=== PATIENT | female | born 1935 | race Caucasian/White ===

== ENCOUNTER → 2021-03-23 14:10 | Outpatient (CLI) | payer MEDICARE, SELFPAY ==
[2021-03-23 14:49] LABS: COVID19 -Nasal RAPID Negative (Negative)
== END ==
PROVIDERS: Visit Provider Physician Assistant
DX: Z20.822 Contact with and (suspected) exposure to COVID-19 (principal)
CPT/HCPCS: 87635

== ENCOUNTER → 2021-10-20 13:30 | Outpatient (CLI) | payer MEDICARE, SELFPAY ==
--- NOTE | 2021-10-20 13:33 | DI.MRI.S_ITS ---
PROCEDURE: MR LUMBAR SPINE WO CON INDICATIONS: Spinal stenosis, lumbar region TECHNIQUE: Noncontrast sagittal T1 spin echo and T2 fast echo, sagittal STIR, and T2 fast spin echo through the lumbar spine. In cases with scoliosis, additional coronal T2 fast spin echo may be performed. COMPARISON: [facility] Outside Film, CR, XR LUMBAR SPINE 2 OR 3 VIEWS, 10/01/2021, 15:50. FINDINGS: Image quality: Excellent. Alignment and Curvature: Trace degenerative anterolisthesis of L3 on L4. Trace degenerative anterolisthesis of L4 on L5. Mild retrolisthesis of L5 on S1 measuring 6 mm. Bone Marrow: Marrow is of normal overall signal. No acute vertebral body compression fractures. Spinal Cord: Conus medullaris terminates at the L1-L2 level. Visualized cord demonstrates normal signal and size. Paraspinous Soft Tissues: No paravertebral masses. T12-L1: No canal stenosis or foraminal stenosis. L1-L2: Disc bulge. Facet hypertrophy. No canal stenosis. Mild bilateral foraminal stenosis. L2-L3: Disc bulge. Facet and ligament hypertrophy. Moderate to severe canal stenosis. Moderate bilateral foraminal stenosis with mild flattening deformity on the exiting bilateral L2 nerve roots. L3-L4: Disc bulge. Facet and ligament hypertrophy. Moderate to severe canal stenosis. Mild right foraminal narrowing. Moderate left foraminal narrowing with flattening deformity on the exiting left L3 nerve root. L4-L5: High-grade canal stenosis secondary to disc bulge, mild anterolisthesis of L4 on L5, and exuberant facet and ligament hypertrophy. Moderate bilateral foraminal narrowing with flattening deformity on the exiting bilateral L4 nerve roots. L5-S1: Retrolisthesis of L5 on S1. Disc degeneration and diffuse disc bulge. Facet hypertrophy. Moderate canal stenosis. Moderate to severe bilateral foraminal narrowing with a degree of bilateral L5 nerve root impingement. IMPRESSION: 1. Diffuse degenerative change with multilevel facet arthropathy. 2. Canal stenosis is moderate to severe at L2-L3, moderate to severe at L3-L4, high-grade at L4-L5, and moderate at L5-S1. 3. Multilevel foraminal narrowing as described above. Dictated by: Aydin Zhang M.D. on 10/20/2021 at 15:22 Approved by: Aydin Zhang M.D. on 10/20/2021 at 15:28
== END ==
PROVIDERS: PCP Internal Medicine; Referring Provider Orthopaedic Surgery Orthopaedic Surgery of the Spine; Visit Provider Orthopaedic Surgery Orthopaedic Surgery of the Spine
DX: M48.061 Spinal stenosis, lumbar region without neurogenic claudication (principal); M48.07 Spinal stenosis, lumbosacral region; M47.816 Spondylosis without myelopathy or radiculopathy, lumbar region; M47.817 Spondylosis without myelopathy or radiculopathy, lumbosacral region
CPT/HCPCS: 72148

== ENCOUNTER → 2021-11-13 11:00 | Outpatient (CLI) | payer MEDICARE, SELFPAY ==
--- NOTE | 2021-11-13 11:03 | DI.CT.S_ITS ---
PROCEDURE: CT LUMBAR SPINE WO CON INDICATIONS: Spinal stenosis, lumbar region TECHNIQUE: Noncontrast 3 mm thick sections acquired from the T12 level to the sacrum. Sagittal and coronal reformats were constructed. For radiation dose reduction, the following was used: automated exposure control. COMPARISON: 10/20/2021 MRI lumbar spine FINDINGS: Anterolisthesis of L4 on L5 measuring 4 mm. Retrolisthesis of L5 on S1 measuring 3 mm. Otherwise normal alignment. Vertebral body heights maintained. No suspicious lytic or blastic osseous lesion. Disc height loss with degenerative endplate change and vacuum disc phenomenon at every level of the lumbar spine. Unc facet hypertrophy to varying degrees is present at each level. There is squaring and close approximation of the spinous processes from L2-L3 through L5-S1 with appearance suggestive of Bastrupp's physiology. Regional soft tissues normal. T12-L1: No spinal canal or neural foraminal stenosis. L1-L2: Diffuse disc bulge with a superimposed broad-based posterior disc protrusion flattens and indents the ventral thecal sac. There is partial calcification of the annulus fibrosis in the paracentral and subarticular zones. Foraminal components of the disc bulge combine with facet hypertrophy to produce mild neural foraminal narrowing L2-L3: Diffuse disc bulge and a superimposed broad-based posterior disc protrusion combine with posterior osteophytic ridging of the endplates and facet hypertrophy and buckling of the ligamentum flavum to produce moderate spinal canal stenosis. These factors combine to produce moderate bilateral neural foraminal narrowing also. L3-L4: Diffuse disc bulge and a superimposed broad-based posterior disc protrusion combines with buckling of the ligamentum flavum and bulky facet hypertrophy to produce severe spinal canal stenosis and subarticular zone narrowing. Prominent osteophytes projecting medially from the medial margin of the right L3-L4 facet. Moderate bilateral neural foraminal stenosis due to foraminal components of the disc bulge and facet hypertrophy. L4-L5: Severe spinal canal stenosis and bilateral neural foraminal stenosis as seen on comparison MRI. Bulky facet hypertrophy with calcified buckling of the ligamentum flavum and prominent osteophytes contribute significantly to the spinal canal and neural foraminal stenosis. L5-S1: Severe subarticular zone stenosis bilaterally. Prominent calcified posterior disc material which blends with posterior osteophytic ridging of the inferior L5 endplate. Severe bilateral neural foraminal stenosis with flattening of the exiting L5 nerve roots. IMPRESSION: Severe degenerative changes as detailed above. Above. Above. Dictated by: Jani Oneill M.D. on 11/13/2021 at 15:34 Approved by: Jani Oneill M.D. on 11/13/2021 at 15:40
== END ==
PROVIDERS: PCP Internal Medicine; Referring Provider Orthopaedic Surgery Orthopaedic Surgery of the Spine; Visit Provider Orthopaedic Surgery Orthopaedic Surgery of the Spine
DX: M48.061 Spinal stenosis, lumbar region without neurogenic claudication (principal); M48.07 Spinal stenosis, lumbosacral region; M47.816 Spondylosis without myelopathy or radiculopathy, lumbar region; Z01.812 Encounter for preprocedural laboratory examination; Z01.818 Encounter for other preprocedural examination
CPT/HCPCS: 36415; 72131; 80048; 85025; 93005

== ENCOUNTER → 2021-11-13 11:13 | Outpatient (CLI) | payer MEDICARE, SELFPAY ==
[2021-11-13 13:58] LABS: Add Manual Diff / Slide Review NO; Basophils Absolute Auto 0 /uL (0-100); Basophils Percent Auto 0.8 % (0-2); Eosinophils Absolute Auto 100 /uL (0-450); Eosinophils Percent Auto 2.8 % (2-4); Hematocrit 36.5 % (36-46); Hemoglobin 12.7 g/dL (12.0-16.0); Lymphocytes Absolute Auto 2300 /uL (1100-4500); Lymphocytes Percent Auto 43.3 % (25-40); Mean Corpuscular HGB Conc 34.8 % (30-36); Mean Corpuscular Hemoglobin 29.9 PG (26-34); Monocytes Absolute Auto 300 /uL (0-900); Monocytes Percent Auto 6.3 % (3-14); Neutrophils Absolute Auto 2400 /uL (1500-7000); Neutrophils Percent Auto 46.8 % (50-75); Platelet Count 182 X10^3/uL (150-400); Red Blood Cell Count 4.24 X10^6/uL (4.0-5.2); Red Cell Distribution Width 13.6 % (11.6-14.8); White Blood Cell Count 5.2 X10^3/uL (4.5-11.0)
[2021-11-13 14:34] LABS: BUN Creatinine Ratio 28.8 (6-22); Blood Urea Nitrogen 23 mg/dL (7-17); Calcium 9.3 mg/dL (8.4-10.2); Carbon Dioxide 33 mmol/L (22-32); Chloride 104 mmol/L (98-107); Estimated Glomerular Filt Rate > 60 mL/min (>60); Glucose 78 mg/dL (80-110); HEMOLYSIS < 15 (0-50); Potassium 4.3 mmol/L (3.4-5.1); Sodium 141 mmol/L (137-145)
== END ==
PROVIDERS: PCP Internal Medicine; Referring Provider Orthopaedic Surgery Orthopaedic Surgery of the Spine; Visit Provider Orthopaedic Surgery Orthopaedic Surgery of the Spine
DX: Z01.818 Encounter for other preprocedural examination (principal)
CPT/HCPCS: 36415; 80048; 85025; 93005

== ENCOUNTER → 2021-12-02 10:45 | Outpatient (CLI) | payer MEDICARE, SELFPAY ==
[2021-12-02 11:58] LABS: COVID19 -Nasal RAPID Negative (Negative)
== END ==
PROVIDERS: PCP Internal Medicine; Referring Provider Orthopaedic Surgery Orthopaedic Surgery of the Spine; Visit Provider Orthopaedic Surgery Orthopaedic Surgery of the Spine
DX: Z20.822 Contact with and (suspected) exposure to COVID-19 (principal)
CPT/HCPCS: 87635; C9803

== ENCOUNTER 2021-12-04 09:20 | Inpatient (IN) | payer MEDICARE, SELFPAY ==
[2021-11-28 09:44] VITALS: BMI 27.8
[2021-12-04] VITALS (13 sets, daily range): BP systolic 106–183; BP diastolic 57–84; PULSE 75–96; RESP 8–22; TEMP 35.6–36.9; O2SAT 97–100; BMI 27.8
--- NOTE | 2021-12-04 | DI.RAD.S_ITS ---
PROCEDURE: XR LUMBAR SPINE 2-3V INDICATIONS: L4-5 L5-S1 TECHNIQUE: 2 spot fluoroscopic views of the lumbar spine were acquired. COMPARISON: None. FINDINGS: Bones: 2 spot fluoroscopic films of the lumbar spine were performed for a posterior spinal fusion L4 through S1. For detailed report please see the surgeon's note. IMPRESSION: Fluoroscopic images obtained for the posterior spinal fusion L4 through S1. Dictated by: Mason Arnold M.D. on 12/04/2021 at 16:07 Approved by: Mason Arnold M.D. on 12/04/2021 at 16:09
[2021-12-04] MEDS: ACETAMINOPHEN 325 MG TABLET 975 MG PO (10:20)
[2021-12-04] MEDS: LACTATED RINGERS 1,000 ML 42 ML IV ×3 (10:21→15:45)
--- NOTE | 2021-12-04 10:35 | PM.PREOP ---
Pre-operative Note COVID-19 COVID-19 status: Negative Result date/Date tested (Pos, Neg/Pending): 12/03/21 Criteria for continued procedure: Expected advancement of disease process, Possibility delay results in more complex future surgery or treatment, Increased loss of function, Continuing or worsening of significant or severe pain, Deterioration of the patient's condition or overall health and Delay expected to result in less-positive ultimate med/surg outcome Interval Note History & Physical reviewed/Exam performed by Physician: Yes Changes to H&P: No
[2021-12-04] MEDS: CEFAZOLIN 2 GM/100 ML PREMIX 100 ML IV ×2 (11:21→19:10)
[2021-12-04] MEDS: BUPIVACAINE LIPOSOME 266 MG/20 ML VIAL INJ (12:04)
[2021-12-04] MEDS: BUPIVACAINE 0.25% (PF) 30 ML, EPINEPHrine 0.3 MG INJ (12:05)
--- NOTE | 2021-12-04 12:20 | SUR.OPER ---
Prone on spine table, head in foam head support, padded chest and pelvic supports, gel pad at knees, lower legs supported by pillows; nipples, genitalia and toes free of pressure, arms secured on foam padded arm boards at <90 degrees abduction. Tape over blanket at thigh secured to table.
[2021-12-04] MEDS: SODIUM CHLORIDE 0.9% 30 ML, VASOPRESSIN 20 UNIT INJ (15:23)
--- NOTE | 2021-12-04 15:40 | P.OP_ITS ---
Operative Date/Time/Diagnoses Date of procedure: 12/04/21 Time of procedure: 12:30 Pre-op diagnosis: 1. L4-5, L5-S1 spondylolisthesis 2. L4-5, L5-S1 spinal stenosis with neurogenic claudication Post-op diagnosis: same Procedure & Clinicians Procedure: 1. L4-5, L5-S1 Postero-lateral and posterior interbody fusion 2. L4-5, L5-S1 interbody cage placement. 3. L4-5, L5-S1 decompressive laminectomy with bilateral facetecomies 4. L4-5, L5-S1 Posterior segmental instrumentation 5. [place] of bone marrow from iliac crest 6. Utilization of microsurgical technique and operating microscope 7. Utilization of robotic assisted navigation Same procedure as scheduled: Yes Indications: Patient has been having chronic back pain and worsening lumbar radiculopathy. Patient failed multiple conservative management with worsening pain weakness and numbness in her lower extremity. Patient has been having difficulty performing activity of daily living. After discussing risks benefits of treatment options, patient elected proceed with surgery. Surgeon: Fallon Gaffney Station Engineer: Isauro Casanova Click Yes if Unassisted: No Anesthesia Type: General Operative Notes Closure Type: primary Specimen(s): none sent Prosthetic devices, grafts, tissues, transplants, or devices: Globus CREO MIS screws, RIse cages Applied: catheter Estimated Blood Loss (mL): 100 Blood products transfused: none Procedure in detail: Patient was seen in the preoperative area. Risks and benefits of the surgery was discussed with the patient. Informed consent was obtained from the patient and placed in the chart. Surgical site was marked. Patient was taken to the operative room. General anesthesia was administered. Prophylactic antibiotic was given to the patient less than 30 min before the incision was made. Patient was placed into a prone position on the [employer] table. Patient's back was then prepped and draped in the sterile fashion. Time-out was performed at this time. After patient was prepped and draped, patient's PSIS was palpated and marked bilaterally. Small 1 cm incision was made over the PSIS for placement of the reference probes. Two trocar was placed into the PSIS 1 on each side. The reference probe was attached to the trocar of the reference apparatus. At this time the C-arm imaging was used to confirm AP and lateral of L4-L5, L5- S1 vertebrae and merged the C-arm imaging using the [employer] robotic navigation system with the CT of the lumbar spine. After successful merging was completed and confirmed, skin marker was used to grazyna out the skin incision using the Luxr robotic arm. Bilateral incision was made at this time. Pre templated trajectory was used and guided using the Luxr robotic navigation system for bilateral L4, L5, S1 pedicle screw placement. This was done by using the robotic arm to guide the high-speed bur to make a cortical entry point. Next a drill was placed also using the robotic arm and guided using the navigation system drilling partially through bilateral L4, L5 and S1 pedicles. Next L4, L5, S1 pedicle screws it was pre templated and measured was placed onto the power regional [employer] company driver and inserted into the pedicles bilaterally. After all 6 screws were placed C-arm imaging was taken of both AP and lateral to confirm the placement. Excellent placement of the screws were confirmed and a matched precisely with the pre planned screw placement using the navigation sys tem. MARs retractor was inserted using [employer] guidence. Globus MARS retractors was placed inside the incision and docked onto the L4 and L5 lamina. Using microsurgical technique and operating microscope, a L4, L5 laminectomy and L4-5, L5-S1 facetectomy was performed using a Kerrison rongeur. Patient was found have severe lateral recess and neural foramen stenosis which was fully d ecompressed after the laminectomy facetectomy. More than 75% of the facets were removed during the process of decompression rendering L4-5, L5-S1 level grossly unstable and required a fusion procedure at the same time. The disc space at L4-5, L5-S1 was identified, and a total diskectomy was performed at L4-5, L5-S1 level. The endplates were decorticated using a rasp and shaver. The total diskectomy and decortication was performed at L4-5, L5-S1 level in order to to accomplish a L4-5, L5-S1 fusion. The local bone from the laminectomy and facetectomy was saved for local bone grafting. After the total diskectomy and decortication was completed, Trifecta bone graft material was combined with local bone that was harvested earlier. At this time, a separate skin is incision was made over the iliac crest. A Jamshidi needle was inserted into the iliac crest through a separate skin incision. 5 cc of bone marrow aspiration was obtained through the separate skin incision using a Jamshidi needle from the iliac crest. The bone marrow aspiration was combined with local bone and the Trifecta bone grafting material. The bone grafting material was placed into the L4-5, L5-S1 interbody space along with a expandable cage. The cage was expanded to its maximum height using the torque limiting screwdriver. The disc preparation as well as the cage insertion were also performed under navigation guidance. After the cage was placed, AP and lateral C-arm imaging was taken to confirm placement of the cage and excellent position was confirmed. Globus MARS retractor was inserted and docked onto the L4-5, L5-S1 posterolateral gutter on the right side. Using the power drill, posterior- lateral decortication was performed at L4-5, L5-S1 level until bleeding cortical bone was identified. The remaining bone grafting material was placed into the L4-5, L5-S1 posterior lateral gutter he order to accomplish posterolateral fusion at the L4-5, L5-S1 level. At this time the tulips were attached to the L4, L5, S1 pedicle screw shanks. After measuring the length of the rods, they were inserted into the tulips of the pedicle screws and locked in place using locking caps and torque limiting screwdriver bilaterally. Total 6 caps and 2 titanium rods was used in order to complete the posterior instrumentation construct. After all the hardware was placed, and confirmed with AP and lateral C-arm imaging, the wound was then irrigated with sterile normal saline and packed with Ray-Ximena gauze for 3 min to accomplish hemostasis. After the gauze was removed the deep fascia was closed with #1 Vicryl suture. The subcutaneous layer was closed with 2-0 Vicryl. The skin was closed with skin delia. Patient tolerated the procedure well. There were no complications. Neuro monitoring system was used to monitor patient's neurologic status throughout entire procedure. There was no disturbance of the neural monitoring signals throughout the case. Complications: none Post-operative Condition: stable Disposition: PACU Plan for aftercare: Admit to inpatient hospital
[2021-12-04] MEDS: fentaNYL 100 MCG/2 ML INJ IV (16:12)
[2021-12-04] MEDS: OXYCODONE IR 5 MG TABLET PO (16:15)
[2021-12-04] MEDS: SODIUM CHLORIDE 0.9% 1,000 ML 100 ML IV (17:10)
[2021-12-04] MEDS: HYDROMORPHONE 0.5 MG INJ IV ×2 (17:23→19:10)
[2021-12-04] MEDS: hydrOXYzine pamoate 25 MG CAPSULE PO (17:27)
[2021-12-04] MEDS: HYDROCODONE/ACET 5/325 TABLET 1 TAB PO (19:11)
[2021-12-04] MEDS: ONDANSETRON 4 MG/2 ML INJ IV (19:41)
[2021-12-04] MEDS: GABAPENTIN 300 MG CAPSULE PO (20:20)
[2021-12-04] MEDS: DOCUSATE 100 MG CAPSULE PO (22:03)
[2021-12-04] MEDS: SENNOSIDES 8.6 MG TABLET 17.2 MG PO (22:04)
[2021-12-04] MEDS: ATORVASTATIN 20 MG TABLET 10 MG PO (22:05)
[2021-12-05] MEDS: HYDROCODONE/ACET 5/325 TABLET 1 TAB PO ×4 (00:30→15:57)
[2021-12-05] MEDS: CEFAZOLIN 2 GM/100 ML PREMIX 100 ML IV (02:27)
[2021-12-05 04:00] VITALS: BP 133/56; PULSE 83; RESP 17; TEMP 36.2; O2SAT 96
[2021-12-05] MEDS: HYDROMORPHONE 0.5 MG INJ IV ×3 (04:39→14:40)
--- NOTE | 2021-12-05 04:47 | PC.NURSE ---
Pt. complained was not able to sleep. States every time that machine pumped it wakes me up. Turned off SCD's for now x1 hour to give her some rest. She might be able to sleep, after SCD's was off. C/O back pain rated pain level @ 8/10, medicated with 0.5 mg. of Dilaudid IVP. Will cont. POC & monitor.
[2021-12-05] MEDS: SODIUM CHLORIDE 0.9% FLUSH 10 ML IV ×2 (06:05→08:15)
[2021-12-05 08:03] LABS: Hematocrit 32.6 % (36-46); Hemoglobin 11.4 g/dL (12.0-16.0)
[2021-12-05] MEDS: FUROSEMIDE 20 MG TABLET PO (08:10)
[2021-12-05] MEDS: hydrOXYzine pamoate 25 MG CAPSULE PO (08:10)
[2021-12-05] MEDS: DOCUSATE 100 MG CAPSULE PO (08:10)
[2021-12-05] MEDS: ACETAMINOPHEN 325 MG TABLET 650 MG PO ×2 (08:10→16:30)
[2021-12-05 08:11] VITALS: BP 127/53; PULSE 82
--- NOTE | 2021-12-05 08:17 | PM.PNPO.1 ---
Subjective Subjective Date Patient Seen: 12/05/21 Time Patient Seen: 07:45 Interval history: Patient is complaining of moderate low back pain this morning. She has not been up with physical therapy or occupational therapy yet. She does know her right foot and leg numbness is improving, which he had prior to surgery. Her postop nausea and vomiting has resolved. Exam Vital Signs (past 8 hours): - 12/05/21 04:00 12/05/21 08:11 Temperature 97.2 F L Pulse Rate 83 82 Respiratory Rate 17 Blood Pressure 133/56 L 127/53 L Pulse Oximetry 96 Oxygen Flow Rate 0 Oxygen Delivery Method Nasal Cannula Oxygen Flow Rate 0 Narrative Exam Narrative: 86-year-old female, resting comfortably in bed, no acute distress. Dressing demonstrates some bloody discharge but no surrounding erythema or induration. Bilateral lower extremity: Motor functions are grossly intact, sensation is grossly intact to light touch, calves are soft and nontender to palpation. Objective Labs Result Diagrams: 12/05/21 07:22 Labs: Laboratory Results - last 24 hr 12/05/21 07:22 Hgb 11.4 L Hct 32.6 L PFSH Medical History Edema HLD (hyperlipidemia) Sciatica Short-term memory loss Spinal stenosis Surgical History History of hysterectomy History of total left hip arthroplasty History of total right hip arthroplasty Hx of bilateral cataract extraction Hx of dilation and curettage Hx of tonsillectomy Social History household members: spouse Smoking Status: Former smoker alcohol intake: current Assessment & Plan Post-op Postoperative Procedures: Procedures Operation Date: 12/04/21 10:45 Actual Procedure Side Surgeon p L4-5, L5-S1 TLIF w. posterior instrumentation -Robot Fallon Gaffney MD Postoperative day: 1 Postoperative status: doing well Postoperative status narrative: Stable status post L4-5, L5-S1 TLIF Postoperative plan narrative: Mobilize with PT/OT. No bending, lifting, twisting x6 weeks -continue with multimodal pain management -DC urinary catheter once mobilizing well -disposition: Possibly home this afternoon/evening, or tomorrow, depending on how PT/OT goes. I will check on her later today.
--- NOTE | 2021-12-05 10:17 | OT.IP.EVAL ---
Current Diagnoses Other spondylosis with radiculopathy, lumbar region (12/04/21) Spinal stenosis, lumbar region with neurogenic claudication (12/04/21) Surgery Performed Operation Date: 12/04/21 10:45 Actual Procedures p L4-5, L5-S1 TLIF w. posterior instrumentation -Robot - Fallon Gaffney MD Past Medical History (Last Reviewed 12/05/21 @ 08:18 by Norah Jimenez PA-C) Edema HLD (hyperlipidemia) Sciatica Short-term memory loss Spinal stenosis Surgical History (Last Reviewed 12/05/21 @ 08:18 by Norah Jimenez PA-C) History of hysterectomy History of total left hip arthroplasty History of total right hip arthroplasty Hx of bilateral cataract extraction Hx of dilation and curettage Hx of tonsillectomy Occupational Therapy Inpatient Evaluation/Re-Eval M1 PT/OT-IP Prior Functional Status Start: 12/05/21 12:00 Freq: NEEDED Status: Active Protocol: Document 12/05/21 13:59 [facility] (Rec: 12/05/21 14:17 [facility] [id number]) Medical Review Prior Functional Status Medical History Reviewed Yes Communication able to make needs known; with memory issues Mobility and Gait pt stated that she is modified independent with all mobilities and ambulation using a 4WW for the last 3 months due to back pain but without AD prior to that; daughter stated that pt was walking ~ 2 miles daily 3 months ago Activities of Daily Living and IADL's Pt able to do ADL and IADL needs but with increased time due to her pain. Social History Household Members spouse Living Arrangements House Number of Floors (Floors) 3 or More Floors Number of Stairs To Enter/Railing? pt stays on main level of the house without stairs to enter Home Environment High Toilet,Walk in Shower, Built-In Shower Seat Home Equipment Front Wheel Walker,Four Wheel Walker,Hand Held Shower,Long Handled Sponge,Long Handled Shoe Horn,Buncher Hand,Sock Aid, Lift Recliner,Grab Bars Near Toilet,Grab Bars In Shower Additional Social History Comment pt's daughter will be staying with her to assist as long as needed has a high bed and has to step up a step stool to get into the bed Per pt's daughter states her mom has short term memory deficits. M2 OT-IP Current Condition Start: 12/05/21 13:57 Freq: Status: Active Protocol: Document 12/05/21 13:59 [facility] (Rec: 12/05/21 14:17 [facility] [id number]) Occupational Therapy Current Condition Current Condition Evaluation Date 12/05/21 Treatment Diagnosis S/p L4-5, L5-S1 TLIF Diagnosis Onset Date 12/04/21 Post Operative Precautions Lumbar Precautions Log Roll,No Twisting,Limit Bending,Lifting Restriction of 10 lbs,Gait Belt above Incisional Area M3 OT- IP Subjective and Pain Start: 12/05/21 13:57 Freq: Status: Active Protocol: Document 12/05/21 13:59 [facility] (Rec: 12/05/21 14:17 [facility] [id number]) OT- Subjective Occupational Therapy Visit Type Type Initial Evaluation Visit Start Time 09:14 Visit Stop Time 10:17 Total Visit Minutes 63 Occupational Therapy Visit Comments Patient Comments Pt agreed to get up and pt's daughter in the room for caregiver training. Patient/Caregiver Goals TO go home. OT Pain Assessment Pain When Pain Assessed During Mobility Pain Present Pain Present Pain Reported Location back Intensity 6 Scale Used Numeric (0 - 10) M4 OT- IP ADL's Start: 12/05/21 13:57 Freq: Status: Active Protocol: Document 12/05/21 13:59 [facility] (Rec: 12/05/21 14:17 [facility] [id number]) OT BBU-Akxy-Axnsssx General Evaluation Self-Feeding Ability Independent OT ADL-Grooming General Evaluation Grooming Ability Standby Assistance Areas Needing Assistance Retrieving/Set-up of Grooming Items Comments OT Grooming Comments Pt able to stand at the sink with FWW in front to do her grooming needs. OT ADL-Oral Care General Eval Oral Care Ability Independent Comments Oral Care Comments VC to hinge at her hips to spit into the sink in order to follow her back precautions. OT ADL-Dressing General Eval Lower Body Dressing Ability Standby Assistance,Maximum Assistance Areas Needing Assistance Socks Comments OT Dressing Comments Able to practice use of sock aid and head of talent management for LB dressing needs. OT ADL-Toileting General Evaluation Toileting Ability Total Assistance Comments OT Toileting Comments Barr in place. Able to simulate wiping and pt unable to reach appropriately and safely as reaching from the front. Suggested pt get a toilet paper aid or have assist at home. OT ADL-Bathing Comments OT Bathing Comments Pt too tired to shower at this time. M5 OT- IP IADL's Start: 12/05/21 13:57 Freq: Status: Active Protocol: Document 12/05/21 13:59 [facility] (Rec: 12/05/21 14:17 [facility] [id number]) OT-Instrumental Activities of Daily Living Home Safety Awareness Awareness of Need for Assistance at Home Good Awareness Home Safety Comments Pt is a little forgetful and not able to recall her back precautions, therefore will benefit from supervision/ assist for all needs. Medication Management Medication Management Comments Pt's daughter to be there to assist. Money Management Money Management Comments Pt's daughter to be there to assist. Meal Preparation Meal Preparation Comments Pt's daughter to be there to assist. District Manager Primary Care Sales District Manager Primary Care Sales Comments Pt's daughter to be there to assist. M6 OT- IP Functional Cognition Start: 12/05/21 13:57 Freq: Status: Active Protocol: Document 12/05/21 13:59 [facility] (Rec: 12/05/21 14:17 [facility] [id number]) Cognitive Factors Limiting Selfcare Function Cognitive Ability Level of Alertness Alert,Confusional State Patient Orientation Name,Place,Situation Attention Span Ability Capable of Focused Attention, Capable of Sustained Attention Ability to Follow Commands Able to Follow One Step Commands with Increased Time, Able to Follow One Step Commands with Repetition Memory Description Short Term Impaired Cognitive Comments Cognitive Assessment Comments Pt forgetting that she had a barr in place and asking to use the bathroom. Pt not able to recall her back precautions and needing reminders to incorporate during ADL and mobility. OT- Vision and Hearing OT- Hearing Assessment OT- Hearing Assessment WFL OT- Vision Assessment Visual Acuity Glasses For Reading M7 OT- IP Mobility and Balance Start: 12/05/21 13:57 Freq: Status: Active Protocol: Document 12/05/21 13:59 [facility] (Rec: 12/05/21 14:17 [facility] [id number]) OT- Bed Mobility Assessment Supine to Sit Supine to Sit Assist Contact Guard Assistance Sit to Supine Sit to Supine Assist Minimal Assistance Scooting Scooting to Edge of Bed Contact Guard Assistance OT-Transfer Assessment Sit to and From Stand Sit to and from Stand Contact Guard Assistance Transfers Transfer Ability Contact Guard Assistance Technique Transfer Destination Bed,Chair,Toilet Transfer Technique Stand Step Pivot Devices Transfer Assistive Devices Gait Belt,Front Wheeled Walker Comments Mobility Comments Pt just needing mainly assist to help get her feet back into bed. Able to educate her daughter how to gregg/doff the gait belt and how to assist to bed mobility and transfers. OT- Balance Assessment Sitting Balance and Reactions Static Sitting Balance Ability Good Dynamic Sitting Balance Ability Good Standing Balance and Reactions Static Standing Balance Ability Fair Dynamic Standing Balance Ability Fair M8 OT- IP Objective Assessments Start: 12/05/21 13:57 Freq: Status: Active Protocol: Document 12/05/21 13:59 [facility] (Rec: 12/05/21 14:17 [facility] [id number]) OT-Muscle Tone Assessment Muscle Tone WNL Yes M9 OT- IP Assessment and Plan Start: 12/05/21 13:57 Freq: Status: Active Protocol: Document 12/05/21 13:59 [facility] (Rec: 12/05/21 14:17 [facility] [id number]) OT Summary Assessment and Plan Potential Rehabilitation Potential Good Analytic Complexity at Evaluation Low Summary OT Impairments Pain,Balance,Functional Cognition,Functional Mobility, Dressing,Toileting,Bathing, Toilet Transfers,Shower Transfers Progress Towards Goals Progressing Toward Goals Assessment Summary Pt Low complexity and main barriers are pain, decreased short term memory and needing cues to recall and incorporate her back precautions. Pt has a supportive daughter that has already initiated caregiver training with OT for ADl and mobility needs. Pt looking to go home with assist when medically stable. Goals Grooming Goal Independent Dressing Goal Independent Toileting Goal Independent Bathing Goal Independent Toilet Transfer Goal Independent Shower Transfer Goal Independent Patient/Caregiver Education Goal Demonstrate Post-Op Precautions Days to Meet Goals 7 Frequency of Treatment Frequency Of Treatment Once a Day Treatment Plan OT Treatment Plan ADL Training,Functional Cognition Training,Functional Mobility,Patient/Family Education,Discharge Planning Discharge Recommendations OT Discharge Recommendations Home with 13/10 Assist Available
--- NOTE | 2021-12-05 10:25 | PT.IIE ---
Current Diagnoses Other spondylosis with radiculopathy, lumbar region (12/04/21) Spinal stenosis, lumbar region with neurogenic claudication (12/04/21) Surgery Performed Operation Date: 12/04/21 10:45 Actual Procedures p L4-5, L5-S1 TLIF w. posterior instrumentation -Robot - Fallon Gaffney MD Surgical History (Last Reviewed 12/05/21 @ 08:18 by Norah Jimenez PA-C) History of hysterectomy History of total left hip arthroplasty History of total right hip arthroplasty Hx of bilateral cataract extraction Hx of dilation and curettage Hx of tonsillectomy Medical History (Last Reviewed 12/05/21 @ 08:18 by Norah Jimenez PA-C) Edema HLD (hyperlipidemia) Sciatica Short-term memory loss Spinal stenosis Physical Therapy Inpatient Evaluation/Re-Eval M1 PT/OT-IP Prior Functional Status Start: 12/05/21 12:00 Freq: NEEDED Status: Active Protocol: Document 12/05/21 10:25 [facility] (Rec: 12/05/21 12:16 [facility] [id number]) Medical Review Prior Functional Status Medical History Reviewed Yes Communication able to make needs known; with memory issues Mobility and Gait pt stated that she is modified independent with all mobilities and ambulation using a 4WW for the last 3 months due to back pain but without AD prior to that; daughter stated that pt was walking ~ 2 miles daily 3 months ago Social History Household Members spouse Living Arrangements House Number of Floors (Floors) 3 or More Floors Number of Stairs To Enter/Railing? pt stays on main level of the house without stairs to enter Home Environment High Toilet,Walk in Shower, Built-In Shower Seat Home Equipment Front Wheel Walker,Four Wheel Walker,Hand Held Shower,Grab Bars Near Toilet,Grab Bars In Shower Additional Social History Comment pt's daughter will be staying with her to assist as long as needed has a high bed and has to step up a step stool to get into the bed M2 PT-IP Current Condition Start: 12/05/21 12:00 Freq: NEEDED Status: Active Protocol: Document 12/05/21 10:25 [facility] (Rec: 12/05/21 12:16 [facility] [id number]) Physical Therapy Current Condition Current Condition Evaluation Date 12/05/21 Treatment Diagnosis s/p L4-5, L5S1 TLIF; difficulty in walking Onset Date 12/04/21 M3 PT-IP Subjective Start: 12/05/21 12:00 Freq: NEEDED Status: Active Protocol: Document 12/05/21 10:25 [facility] (Rec: 12/05/21 12:16 [facility] [id number]) Subjective Physical Therapy Visit Type Type Initial Evaluation Visit Start Time 10:25 Visit Stop Time 11:10 Total Visit Minutes 45 Number of RECOVERY AUDITOR Visits 0 Physical Therapy Visit Comments Patient Comments agreeable to do PT Therapy Pain Assessment Pain When Pain Assessed At Rest Pain Present Pain Present Pain Reported Location back Intensity 8 Scale Used Numeric (0 - 10) Pain Management Techniques Apply Cold,Distraction, Modification of Treatment,Re- positioning,Timing of Activity with Medications M4 PT-IP Mobility and Gait Start: 12/05/21 12:00 Freq: NEEDED Status: Active Protocol: Document 12/05/21 10:25 [facility] (Rec: 12/05/21 12:16 [facility] [id number]) PT-Bed Mobility Assessment Rolling Type of Rolling Log Rolling Level of Assist Standby Assistance Supine to Sit Supine to Sit Standby Assistance Sit to Supine Sit to Supine Standby Assistance PT-Transfer Assessment Sit to and From Stand Sit to and from Stand Contact Guard Assistance, Minimal Assistance,1 Person Assistance,Use of Upper Extremities Equipment Transfer Assistive Device Gait Belt,Front Wheeled Walker Orthotic/Prosthetic Devices or Brace: No Transfers Transfer Destination Bed,Chair Transfer Technique ambulated Transfer Ability Level of Assist Contact Guard Assistance, Minimal Assistance,1 Person Assistance,Use of Upper Extremities Comments Mobility Comments pt sitting on the chair and daughter in room. reviewed back precautions with pt and and pt requires cues to recall . daughter stated that pt has early onset dementia. pt completed sit to stand from chair min A and cues and ambulated in room ~ 30 ft using FWW CGA. pt ambulated to EOB and completed log roll sit<>supine SBA with max cues for techniques. caregiver training conducted and daughter was able to instruct pt on bed mobility. daughter also able to put safety belt on pt and ambulated with pt in room ~ 30 ft using FWW SBA to CGA. pt sat on the chair. educated pt and daughter on how to complete up/down step stool to get into the bed. daughter assisted pt with up/ down step using FWW and completed safely. pt transferred to chair with daughter assisting using FWW SBA. positioned pt on the chair. call light and table placed within reach. pt and daughter without further concerns Gait Assessment Gait Gait Assistance Required: Standby Assistance,Contact Guard Assist Distance (Feet) 30 Able to Maintain Weight Bearing Status Yes During Gait Assistive Devices Assistive Device Gait Belt,Front Wheeled Walker Orthotic/Prosthetic Devices or Brace: No Gait Deviations General Gait Pattern Decreased Stride Length, Decreased Feet Clearance,Step- to Gait Factors Limiting Gait Function Factors Limiting Gait Function Decreased Activity Tolerance, Decreased Sensation,Decreased Strength,Limited Range of Motion,Pain,Poor Balance,Poor Safety Awareness Stair Climbing Assessment Evaluation Level of Assist On Stairs Contact Guard Assistance,1 Person Assistance Devices Stair Climbing Assistive Devices Front Wheel Walker Technique/Endurance Stair Climbing Direction Ascend and Descend Stair Climbing Technique Step to Step Number of Steps Climbed 1 Query Text: Stair Climbing Set # Repetitions (reps) 1 PT-Balance Assessment Sitting Balance and Reactions Static Sitting Balance Ability Normal Dynamic Sitting Balance Ability Good Standing Balance and Reactions Static Standing Balance Ability Fair Dynamic Standing Balance Ability Fair Device Used FWW M5 PT-IP Objective Assessments Start: 12/05/21 12:00 Freq: NEEDED Status: Active Protocol: Document 12/05/21 10:25 [facility] (Rec: 12/05/21 12:16 AB [id number]) Orientation Orientation/Cognition Level of Alertness Alert Orientation Name,Place,Situation Language Function Ability No Deficits Noted Safety Awareness Decreased Safety Awareness Memory Description Short Term Impaired,Group Home Impaired Gross Range of Motion Lower Extremity ROM Assessment Within Functional Limits Strength Lower Extremity Strength Hip 4-/5 Knee 4-/5 Sensation Assessment Sensation Gross Sensation Right LE Impaired Sensation Description Numbness Comments Sensation Comments c/o R foot numbness Muscle Tone Muscle Tone WNL Yes M6 PT-IP Treatment Start: 12/05/21 12:00 Freq: NEEDED Status: Active Protocol: Document 12/05/21 10:25 [facility] (Rec: 12/05/21 12:16 AB [id number]) Physical Therapy Treatment Education Education Provided Precautions,Weight Bearing Status,Safety M7 PT-IP Assessment and Plan Start: 12/05/21 12:00 Freq: NEEDED Status: Active Protocol: Document 12/05/21 10:25 [facility] (Rec: 12/05/21 12:16 AB [id number]) PT Summary Assessment and Plan Potential Rehabilitation Potential Good Status of Condition at Evaluation Stable Summary Impairments Pain,ROM,Strength,Balance, Coordination,Sensation, Cognition,Bed Mobility, Transfers,Gait,Activity Tolerance Assessment Summary Caregiver training conducted and daughter was able to assist pt safely. pt plans to go home and daughter to assist pt. pt may go hme when medically stable. Goals Bed Mobility Goal Independent Transfer Goal Independent,Front Wheeled Walker Gait Goal Independent,Front Wheel Walker Gait Distance 200 Other Goals up/down step stool using FWW mod I Days to Meet Goals 5 Frequency of Treatment Frequency Of Treatment Twice a Day Treatment Plan Physical Therapy Treatment Plan Bed Mobility Training,Transfer Training,Gait Training, Therapeutic Exercise,Balance Retraining,Post Op Education, Discharge Planning,Hot or Cold Pack,Neuromuscular Re-ed, Coordination Retraining,Manual Therapy Precautions Lumbar Precautions Log Roll,No Twisting,Limit Bending,Lifting Restriction of 10 lbs,Gait Belt above Incisional Area Recommendations To Nursing Amount of Assist Needed 1 Person Assist Discharge Recommendations PT Discharge Recommendations Home with Assistance Transportation Needs at Discharge Private Vehicle
[2021-12-05 11:16] VITALS: BP 104/51; PULSE 81; RESP 18; O2SAT 98
--- NOTE | 2021-12-05 14:59 | CM.DANOTE ---
Initial DCP Assessment Note Pt is an 86 yo female, resident of [place], now POD#[address] Gaffney PCP: Xi Jules Payer: MCR/[employer] Reviewed chart, pt discussed in multidisciplinary rounds this morning. Therapy has cleared pt for return home w/family to assist and pt has planned for home, DC order from Ortho expected this afternoon No barriers identified at this time to patient's safe discharge home w/family to assist; close outpatient f/u recommended. LEONEL Ross Discharge Planning/Care Management CM Discharge Assessment Start: 12/05/21 14:55 Freq: Status: Active Protocol: Document 12/05/21 14:55 [facility] (Rec: 12/05/21 14:58 [facility] [id number]) Discharge Planning Assessment Assigned Work Station Support Specialist LEONEL Easton DPOA/Assigned Designee Name Dennis Mckeon, spouse Contact Information [phone] Advance Directives? Currently unknown whereabouts Advance Directives on File No History Provided By Patient Prior Living Arrangements House Household Members spouse Type of transporation used prior to Relies on Others admit Willing to Return to Facility? No Independent with ADL's Yes: Using AD d/t back pain Is patient alert and oriented? Yes Needs Assistance With Home Chores / Shopping Barriers to Discharge No Comment Home w/family expected Discharge Plan Home Transportation Arrangement Family Referrals Initiated None needed
[2021-12-05 15:37] VITALS: BP 103/58; PULSE 78; RESP 18; O2SAT 97
[2021-12-05 15:44] VITALS: TEMP 36.8
--- NOTE | 2021-12-05 16:00 | PT-IP ANOTE ---
Checked on pt this PM, daughter present. Pt and daughter confirm they feel safe for pt to return home this PM once discharge orders are placed. Pt refused further PT and requests to rest prior to d/c due to fatigue.
--- NOTE | 2021-12-05 17:52 | P.DS_ITS ---
History of Present Illness History of Present Illness Date Patient Seen: 12/05/21 Time Patient Seen: 17:55 Chief complaint: Low back pain s/p TLIF Narrative: Please see prior HPI from today Discharge Providers Provider Date of admission: 12/04/21 09:20 Discharge Date: 12/05/21 Primary care physician: Xi Jules MD Consults: 12/04/21 16:51 Consult to Occupational Therapy Evaluate & Treat Comment: Physician Instructions: Evaluate and treat Consult to Physical Therapy Evaluate & Treat Comment: Physician Instructions: Evaluate and Treat Discharge provider: Norah Jimenez PA-C Summary Hospital Course Discharge Diagnosis: 1. L4-5, L5-S1 spondylolisthesis 2. L4-5, L5-S1 spinal stenosis with neurogenic claudication Hospital Course: Operative Date/Time/Diagnoses Date of procedure: 12/04/21 Time of procedure: 12:30 Procedure & Clinicians Procedure: 1. L4-5, L5-S1 Postero-lateral and posterior interbody fusion 2. L4-5, L5-S1 interbody cage placement. 3. L4-5, L5-S1 decompressive laminectomy with bilateral facetecomies 4. L4-5, L5-S1 Posterior segmental instrumentation 5. [place] of bone marrow from iliac crest 6. Utilization of microsurgical technique and operating microscope 7. Utilization of robotic assisted navigation Same procedure as scheduled: Yes Indications: Patient has been having chronic back pain and worsening lumbar radiculopathy. Patient failed multiple conservative management with worsening pain weakness and numbness in her lower extremity.? Patient has been having difficulty performing activity of daily living.? After discussing risks benefits of treatment options, patient elected proceed with surgery. Surgeon: Fallon Gaffney Health Information Technologist: Isauro Casanova Click Yes if Unassisted: No Anesthesia Type: General Operative Notes Closure Type: primary Specimen(s): none sent Prosthetic devices, grafts, tissues, transplants, or devices: Globus CREO MIS screws, RIse cages Applied: catheter Estimated Blood Loss (mL): 100 Blood products transfused: none Status at Discharge Cognitive/behavioral status at discharge: at baseline, oriented Functional status at discharge: uses cane/walker Overall status at discharge: patient is progressing back to baseline Exam Vital Signs (past 8 hours): - 12/05/21 11:16 12/05/21 15:37 12/05/21 15:44 Temperature 98.2 F Pulse Rate 81 78 Respiratory Rate 18 18 Blood Pressure 104/51 L 103/58 L Pulse Oximetry 98 97 Oxygen Flow Rate 0 0 Oxygen Delivery Method Nasal Cannula Oxygen Flow Rate 0 Narrative Exam Narrative: Please see prior exam from today Objective Labs Result Diagrams: 12/05/21 07:22 Labs: Laboratory Results - last 24 hr 12/05/21 07:22 Hgb 11.4 L Hct 32.6 L PFSH Medical History Edema HLD (hyperlipidemia) Sciatica Short-term memory loss Spinal stenosis Surgical History History of hysterectomy History of total left hip arthroplasty History of total right hip arthroplasty Hx of bilateral cataract extraction Hx of dilation and curettage Hx of tonsillectomy Social History household members: spouse Smoking Status: Former smoker alcohol intake: current Discharge Assessment & Plan Assessment and Plan Assessment: Stable status post L4-5, L5-S1 TLIF Plan of Treatment: -Mobilize with PT/OT.? No bending, lifting, twisting x6 weeks? -continue with multimodal pain management -follow-up with Dr. Martinez in 10-14 days -DC home today once cleared by PT with her daughter, who is a physical therapist Discharge Plan Discharge Plan Patient Disposition: Home Discharge orders & Medications Prescriptions: New acetaminophen 325 mg Tablet 325 mg PO Q4H MDD Max 3000mg/day from all source PRN (Reason: Pain, Mild (1- 3)) Qty: 90 0RF docusate sodium 100 mg Capsule 100 mg PO BID PRN (Reason: Constipation from narcotic pain meds) Qty: 30 0RF hydrocodone-acetaminophen 5-325 mg Tablet 1 tab PO Q4HR PRN (Reason: Pain, Moderate (4-6)) Qty: 42 0RF Rx Instructions: Max 3000 mg of acetaminophen per day from all sources hydroxyzine pamoate 25 mg Capsule 25 mg PO Q4HR PRN (Reason: Muscle spasms/pain/nausea) Qty: 20 0RF sennosides [senna] 8.6 mg Tablet 17.2 mg PO BEDTIME PRN (Reason: constipation) Qty: 14 0RF Continued atorvastatin 10 mg Tablet 10 mg PO BEDTIME gabapentin 300 mg Capsule 300 mg PO BEDTIME furosemide 20 mg Tablet 20 mg PO QAM diphenhydramine-acetaminophen [Acetaminophen PM] 25-500 mg Tablet 1 tab PO BEDTIME Qty: 30 0RF Rx Instructions: (can use 25mg of OTC Benadryl for insomnia instead) Follow up/Referrals: Xi Jules MD [Primary Care Provider] - Fallon Gaffney MD [Physician] - (10-14 days for postoperative visit) Diet/Activity/Treatments Diet: Diet as Tolerated Other treatments: Medications: -OTC Tylenol (acetaminophen) 325mg 1 tablet every 4 hours as needed for pain/fever. Max 3,000mg per day. -Hydrocodone-acetaminophen 5/325 mg take 1 tablet every 4 hours as needed for moderate-severe pain (narcotic pain medication). -As needed medications: -Ducolax and /or MiraLax as needed for constipation from narcotic pain medications. -Pepcid AC as needed for stomach upset. -Vistaril (hydroxyine) 25mg 1 tab every 4 hours as needed for spasms/pain/nausea. Dressing/Wound care: -Keep dressing in place until postoperative follow-up office visit. -Okay to shower. Keep wound out of direct water stream. Can use PressNSeal plastic wrap to protect from shower stream. No soaking or submerging until all the scabs fall off (approximately 6 weeks). -Please call the office if dressing becomes wet, soiled, or saturated. Activities: -Limit bending, lifting, twisting x6 weeks. No deep bending (more than 90 degrees) or twisting at the waist. No lifting > 20 pounds. -Walk frequently. -Weight-bearing as tolerated. Use front wheeled walker, and progress to cane when safe. -Continue with home exercises as directed by your physical therapist. -Ice your incision as needed for pain/inflammation/swelling. Protect your skin with a folded pillowcase. -Incentive Spirometer (breathing device from [facility]): 5-10xs every hour while awake for the first 1-2 weeks. Follow-up: -Follow-up with your surgeon or PA in the office in 10-14 days after surgery. -Follow-up with your surgeon 6 weeks postoperatively. Call the office if you have chest pain, shortness of breath, significant swelling that will not resolve with elevating, fever over 101?, significantly worsening pain, or are concerned you might need to go to the Emergency Room. [facility]: [phone] Skin/Wound/Dressing Care Report to your healthcare provider any signs of infection, such as:: chills, fever, night sweats, unusual drainage and unusual redness Visit Report/Discharge Packet Instructions: DI for Prescription Opioid Use, DI for Transforaminal Lumbar Interbody Fusion Stand Alone Forms: Surgery Discharge Discharge Data Primary Care Provider: Xi Jules
--- NOTE | 2021-12-05 18:43 | PC.NURSE ---
Pt is A&Ox2-3 slightly forgetful per baseline. She reports good pain control with prn medications. MD notified for barr removal and she is able to void without difficulty today. She is tolerating meals without nausea/vomiting and is cleared for discharge home with daughter by PT/OT. braille operator training completed at bedside. She has dressing changed to her back and delia are c/d/i with steri strips overtop. PA arrives to evaluate patient this evening and patient and her daughter both express readiness to discharge home. She is cleared to discharge home this evening. Patient and her daughter acknowledge understanding of medications, site care, activity limitations, s/sx of infection as well as follow up care. She is escorted with all of her belongings via w/chair for discharge home in private vehicle with her daughter this evening at 1830.
== END 2021-12-05 18:30 | disposition home or self-care (01) | DRG 455 ==
PROVIDERS: Admitting Provider Orthopaedic Surgery Orthopaedic Surgery of the Spine; PCP Internal Medicine; Referring Provider Orthopaedic Surgery Orthopaedic Surgery of the Spine; Visit Provider Orthopaedic Surgery Orthopaedic Surgery of the Spine
PROC: 0SG00AJ Fusion of Lumbar Vertebral Joint with Interbody Fusion Device, Posterior Approach, Anterior Column, Open Approach (ICD-10-PCS; principal; 2021-12-04 10:45)
DX: M48.062 Spinal stenosis, lumbar region with neurogenic claudication (principal); M43.16 Spondylolisthesis, lumbar region; M43.17 Spondylolisthesis, lumbosacral region; E78.5 Hyperlipidemia, unspecified; M54.16 Radiculopathy, lumbar region; Z20.822 Contact with and (suspected) exposure to COVID-19; Z87.891 Personal history of nicotine dependence
CPT/HCPCS: 72100; 76000; 82962; 85014; 85018; 87635; 97161; 97165; 97530; 97535; C9803; C9290; J0171; J0330; J0690; J1100; J1170; J2405; J2704; J3010

== ENCOUNTER 2021-12-12 08:11 | Emergency (ER) | payer MEDICARE, SELFPAY ==
[2021-12-04 18:10] VITALS: BMI 27.8
[2021-12-12] VITALS (8 sets, daily range): BP systolic 130–187; BP diastolic 62–77; PULSE 72–94; RESP 18; TEMP 36.4; O2SAT 95–100; BMI 31.8
--- NOTE | 2021-12-12 08:41 | DI.CT.S_ITS ---
PROCEDURE: CT LUMBAR SPINE WO CON INDICATIONS: Postoperative pain SURG 12-04-21 TECHNIQUE: Noncontrast 3 mm thick sections acquired from the T12 level to the sacrum. Sagittal and coronal reformats were constructed. For radiation dose reduction, the following was used: automated exposure control. COMPARISON: [facility], CT, CT LUMBAR SPINE WO CON, 11/13/2021, 11:17. FINDINGS: Image quality: Excellent. Bones: There is normal bony alignment. No acute vertebral body compression fractures. No suspicious lytic or blastic bony lesions. No pars defects. There are postoperative changes of pedicular screw and jake fixation spanning from L4 through S1. No perihardware lucency. Discectomy and interbody disc placement at L4-5 and L5-S1 is seen. T12-L1: No significant disc bulge. The foramina and central canal are patent. L1-L2: No change compared to 11/13/2021. L2-L3: No change compared to 11/13/2021. L3-L4: No change compared to 11/13/2021. Severe central canal stenosis due to ligamentum flavum buckling and bulky facet hypertrophy is unchanged. Moderate bilateral neural foraminal stenosis. L4-L5: Postoperative changes of pedicular screw and jake fixation with discectomy and interbody fixation. There is been laminotomy on the right. Facet hypertrophy and ligamentum flavum hypertrophy appears to cause persistent severe central canal stenosis. Series 3, image 70. L5-S1: Postoperative changes of pedicular screw and jake fixation with discectomy and interbody fixation. There has been laminotomy on the right. Soft tissues are not well evaluated on CT in there is metallic artifact however the central canal appears stenotic. Soft tissues: No retroperitoneal masses or hematomas. 1.1 centimeter hypodensity in the right lobe of the liver hepatic segment 8 and 1 centimeter hypodensity in hepatic segment 6 are both unchanged compared to the prior CT likely cysts or hemangiomas. Visualized aorta is normal in caliber. IMPRESSION: Postoperative changes as above with severe central canal stenosis at L3-4, L4-5, and L5-S1. Dictated by: Nate Valdez M.D. on 12/12/2021 at 9:01 Approved by: Nate Valdez M.D. on 12/12/2021 at 9:16
--- NOTE | 2021-12-12 08:42 | ED_ITS ---
HPI - Back Pain/Injury General Chief Complaint: Back Pain/Injury Stated Complaint: Severe back/leg pain post spinal surg last week Time Seen by Provider: 12/12/21 08:31 Source: patient History of Present Illness HPI Narrative: Patient brought here by daughter from home. Complains of right lower back pain as well as low back pain that rates her left leg. No calf pain. Patient is postop day 8 status post back surgery/laminectomy/fusion that was done here by Haylie Martinez. She has been doing well in the 1st few days postoperative. However last 2 days now has had pain without any injury or changes in activity. Is taking routine pain medication without any changes. Is taking hydrocodone. No fever or chills. [place] are still in place. Has been ambulatory at home. Using a walker. Brought in by private vehicle. Related Data Home Medications Medication Instructions Recorded Confirmed atorvastatin 10 mg tablet 10 mg PO BEDTIME 11/28/21 12/04/21 furosemide 20 mg tablet 20 mg PO QAM 11/28/21 12/04/21 gabapentin 300 mg capsule 300 mg PO BEDTIME 11/28/21 12/04/21 Previous Rx's Medication Instructions Recorded acetaminophen 325 mg tablet 325 mg PO Q4H PRN Pain, Mild (1-3) 12/05/21 #90 tabs diphenhydramine 25 1 tab PO BEDTIME #30 tabs 12/05/21 mg-acetaminophen 500 mg tablet (Acetaminophen PM) docusate sodium 100 mg capsule 100 mg PO BID PRN Constipation 12/05/21 from narcotic pain meds #30 caps hydrocodone 5 mg-acetaminophen 325 1 tab PO Q4HR PRN Pain, Moderate 12/05/21 mg tablet (4-6) #42 tabs hydroxyzine pamoate 25 mg capsule 25 mg PO Q4HR PRN Muscle 12/05/21 spasms/pain/nausea #20 caps sennosides 8.6 mg tablet (senna) 17.2 mg PO BEDTIME PRN 12/05/21 constipation #14 tabs baclofen 20 mg tablet 20 mg PO TID #18 tabs 12/12/21 Allergies Allergy/AdvReac Type Severity Reaction Status Date / Time No Known Drug Allergies Allergy Unverified 03/23/21 14:09 Review of Systems Review of Systems Narrative: GENERAL: Denies chills, fatigue, malaise, fever, sweats. HEENT: Denies sinus pain, ear pain, sore throat RESPIRATORY: Denies dyspnea, cough CARDIOVASCULAR: Denies chest pain, palpitations GASTROINTESTINAL: Denies nausea, vomiting, abdominal pain : Denies dysuria, frequency, hematuria MUSCULOSKELETAL: Positive for muscle or bony pain SKIN: Denies rash, skin lesions NEUROLOGIC: Denies weakness, numbness ROS Unobtainable: All systems reviewed & are unremarkable except as noted in HPI and below Patient History Medical History Edema HLD (hyperlipidemia) Sciatica Short-term memory loss Spinal stenosis Surgical History History of hysterectomy History of total left hip arthroplasty History of total right hip arthroplasty Hx of bilateral cataract extraction Hx of dilation and curettage Hx of tonsillectomy Social History household members: spouse Smoking Status: Former smoker alcohol intake: current Smoking Status: Former smoker alcohol intake frequency: a few times a week Substance Use Type: does not use Exam Narrative Exam Narrative: GENERAL: in no distress, not toxic not dyspneic HEAD: Normocephalic. EYES: Pupils equal round No scleral icterus. ENT: Mucous membranes moist. NECK: Trachea midline. CARDIOVASCULAR: Regular rate and rhythm without murmurs RESPIRATORY: Clear to auscultation. Breath sounds equal bilaterally. No wheezes, rales, or rhonchi. GASTROINTESTINAL: Abdomen soft, non-tender EXTREMITIES: No gross deformities. Calves or warm soft and pink. No palpable cords. Normal De La O test and Homans test BACK: No flank tenderness. Colleen all 4 sites clean dry intact incision area. No erythema induration or fluctuance. However there is tenderness to the right lower stable incision area. Increased pain right straight leg raise at 30?. Left leg straight raise pain at 60?. Patient able to log roll to the right with assist NEURO: AOx4. SKIN: Warm and dry PSYCH: Not anxious, is cooperative Initial Vital Signs Initial Vital Signs: Vital Signs Temperature 97.5 F L 12/12/21 08:17 Pulse Rate 86 12/12/21 08:17 Respiratory Rate 18 12/12/21 08:17 Blood Pressure 181/77 H 12/12/21 08:17 Pulse Oximetry 97 12/12/21 08:17 Oxygen Delivery Method 12/12/21 08:17 Course Course Course Narrative: No new issues during course of stay Orders Ordered: ED Orders 12/12/21 08:41 CT lumbar spine wo con Stat 12/12/21 08:45 CBC Auto Diff [Complete Blood Count AUTO DIFF] Stat CMP [Comprehensive Metabolic Panel] Stat Discontinued Medications Hydromorphone HCl (Hydromorphone 1 Mg Inj) 1 mg IV NOW ONE Stop: 12/12/21 08:41 Last Admin: 12/12/21 09:15 Dose: 1 mg Documented By: BT Ondansetron HCl (Ondansetron 4 Mg/2 Ml Inj) 4 mg IV NOW ONE Stop: 12/12/21 08:41 Last Admin: 12/12/21 09:15 Dose: 4 mg Documented By: BT Reevaluation(s) Reevaluation #1: Reviewed results with patient and daughter. At the same laboratory studies and imaging are reassuring. Patient is pain-free at this time. Feels much better. They do desire discharge home. Reviewed with them likely had muscular spasm of the back the past 2 days. I will prescribe baclofen to help supplement pain control. They agree with treatment plan Time: 10:32 Vital Signs Vital signs: Vital Signs - 8 hr 12/12/21 09:15 12/12/21 09:15 12/12/21 09:30 Pulse Rate 84 94 H Blood Pressure 187/74 H Pulse Oximetry 97 95 12/12/21 09:33 12/12/21 09:33 12/12/21 10:00 Pulse Rate 82 72 Blood Pressure 143/66 H Pulse Oximetry 99 99 12/12/21 10:01 12/12/21 10:01 12/12/21 10:30 Pulse Rate 72 75 Blood Pressure 130/62 Pulse Oximetry 99 100 12/12/21 10:31 12/12/21 10:31 Pulse Rate 76 Blood Pressure 156/68 H Pulse Oximetry 100 MDM - Back Pain/Injury Differential Diagnosis Differential diagnosis: Likely lumbar radiculopathy, sciatica, strain of lumbar region and other (Postoperative infection/muscle spasm) Lab Data Result diagrams: 12/12/21 08:45 12/12/21 08:45 Labs: Lab Results 09/22/22 09/22/22 Range/Units 08:45 08:45 WBC 5.6 (4.5-11.0) X10^3/uL RBC 3.65 L (4.0-5.2) X10^6/uL Hgb 10.8 L (12.0-16.0) g/dL Hct 31.0 L (36-46) % MCV 85.0 (80-100) fL MCH 29.7 (26-34) PG MCHC 34.9 (30-36) % RDW 12.6 (11.6-14.8) % Plt Count 234 (150-400) X10^3/uL Neut % (Auto) 66.4 (50-75) % Lymph % (Auto) 24.6 L (25-40) % [place] % (Auto) 6.6 (3-14) % Eos % (Auto) 2.1 (2-4) % Baso % (Auto) 0.3 (0-2) % Neut # (Auto) 3700 (8409-3324) /uL Lymph # (Auto) 1400 (5125-7759) /uL [place] # (Auto) 400 (0-900) /uL Eos # (Auto) 100 (0-450) /uL Baso # (Auto) 0 (0-100) /uL Sodium 140 (137-145) mmol/L Potassium 3.7 (3.4-5.1) mmol/L Chloride 101 (98-107) mmol/L Carbon Dioxide 30 (22-32) mmol/L BUN 10 (7-17) mg/dL Creatinine 0.72 (0.52-1.04) mg/dL Estimated GFR > 60 (>60) mL/min BUN/Creatinine Ratio 13.9 (6-22) Glucose 118 H (80-110) mg/dL Calcium 8.9 (8.4-10.2) mg/dL Total Bilirubin 0.6 (0.2-1.3) mg/dL AST 67 H (14-36) IU/L ALT 67 H (<35) IU/L Alkaline Phosphatase 93 (38-126) U/L Total Protein 6.7 (6.3-8.2) g/dL Albumin 3.6 (3.5-5.0) g/dL Globulin 3.1 (1.7-4.1) g/dL Albumin/Globulin Ratio 1.2 (1.0-2.8) Imaging Data CT lumbar spine: Radiologist's Impression: [address] [address] [address] Scan Report Signed Patient: Lina Mckeon MR#: [id number] : 1935 Acct:[id number] Age/Sex: 86 / F Date of Service: 12/12/21 Loc: ED Accession Number: [id number] ?? Procedure: CT lumbar spine wo con Ordering Provider: Brant Milan MD PROCEDURE:? CT LUMBAR SPINE WO CON ? INDICATIONS:? Postoperative pain SURG 12-04-21 ? TECHNIQUE:? Noncontrast 3 mm thick sections acquired from the T12 level to the sacrum.? Sagittal and coronal reformats were constructed.? For radiation dose reduction, the following was used:? automated exposure control.? ? COMPARISON:? [facility], CT, CT LUMBAR SPINE WO CON, 11/13/2021, 11:17. ? FINDINGS:? Image quality:? Excellent.? ? Bones:? There is normal bony alignment.? No acute vertebral body compression fractures.? No suspicious lytic or blastic bony lesions.? No pars defects.? There are postoperative changes of pedicular screw and jake fixation spanning from L4 through S1.? No perihardware lucency.? Discectomy and interbody disc placement at L4-5 and L5-S1 is seen. ? T12-L1:? No significant disc bulge. The foramina and central canal are patent. ? L1-L2:? No change compared to 11/13/2021. ? L2-L3:? No change compared to 11/13/2021. ? L3-L4:? No change compared to 11/13/2021.? Severe central canal stenosis due to ligamentum flavum buckling and bulky facet hypertrophy is unchanged.? Moderate bilateral neural foraminal stenosis. ? L4-L5:? Postoperative changes of pedicular screw and jake fixation with discecto my and interbody fixation.? There is been laminotomy on the right.? Facet hypertrophy and ligamentum flavum hypertrophy appears to cause persistent severe central canal stenosis.? Series 3, image 70. ? L5-S1:? Postoperative changes of pedicular screw and jake fixation with discectomy and interbody fixation.? There has been laminotomy on the right.? Soft tissues are not well evaluated on CT in there is metallic artifact however the central canal appears stenotic. ? Soft tissues:? No retroperitoneal masses or hematomas.? 1.1 centimeter hypodensity in the right lobe of the liver hepatic segment 8 and 1 centimeter hypodensity in hepatic segment 6 are both unchanged compared to the prior CT likely cysts or hemangiomas.? Visualized aorta is normal in caliber.? ? ? IMPRESSION:? Postoperative changes as above with severe central canal stenosis at L3-4, L4-5, and L5-S1. ? ? Dictated by: Nate Valdez M.D. on 12/12/2021 at 9:01 ? ? Approved by: Nate Valdez M.D. on 12/12/2021 at 9:16 ? MDM Narrative Medical decision making narrative: Appropriate for discharge home. Exam and laboratory studies and imaging are reassuring. At this time no fever, white cell count normal. Likely not infection as source of her pain. Likely muscle spasm. Return precautions reviewed patient and daughter. They do desire discharge home. Baclofen will be added to help for muscle spasms. Not toxic at discharge Discharge Plan Departure Patient Disposition: Home Clinical Impression: Muscle spasm of back Instructions: DI for Back Spasm Activity Restrictions/Additional Instructions: See ortho spine surgeon as scheduled for your follow-up appointment. Baclofen has been prescribed for muscle spasms, do not combine this with your pain medication that was prescribed to after surgery, do not take them together. Be sure to take them 4 hours apart. Baclofen to be taken only if you have back spasm. Return if worse or if any questions or concerns. No driving or operating machinery today or when taking prescribed pain medication. Prescriptions: New baclofen 20 mg tablet 20 mg PO TID Qty: 18 0RF No Action atorvastatin 10 mg Tablet 10 mg PO BEDTIME gabapentin 300 mg Capsule 300 mg PO BEDTIME furosemide 20 mg Tablet 20 mg PO QAM acetaminophen 325 mg Tablet 325 mg PO Q4H MDD Max 3000mg/day from all source PRN (Reason: Pain, Mild (1- 3)) Qty: 90 0RF docusate sodium 100 mg Capsule 100 mg PO BID PRN (Reason: Constipation from narcotic pain meds) Qty: 30 0RF hydrocodone-acetaminophen 5-325 mg Tablet 1 tab PO Q4HR PRN (Reason: Pain, Moderate (4-6)) Qty: 42 0RF Rx Instructions: Max 3000 mg of acetaminophen per day from all sources hydroxyzine pamoate 25 mg Capsule 25 mg PO Q4HR PRN (Reason: Muscle spasms/pain/nausea) Qty: 20 0RF sennosides [senna] 8.6 mg Tablet 17.2 mg PO BEDTIME PRN (Reason: constipation) Qty: 14 0RF diphenhydramine-acetaminophen [Acetaminophen PM] 25-500 mg Tablet 1 tab PO BEDTIME Qty: 30 0RF Rx Instructions: (can use 25mg of OTC Benadryl for insomnia instead) Referrals: Xi Jules MD [Primary Care Provider] - Visit Report Forms: Patient Portal/API
[2021-12-12 08:55] LABS: Add Manual Diff / Slide Review NO; Basophils Absolute Auto 0 /uL (0-100); Basophils Percent Auto 0.3 % (0-2); Eosinophils Absolute Auto 100 /uL (0-450); Eosinophils Percent Auto 2.1 % (2-4); Hemoglobin 10.8 g/dL (12.0-16.0); Lymphocytes Absolute Auto 1400 /uL (1100-4500); Lymphocytes Percent Auto 24.6 % (25-40); Mean Corpuscular HGB Conc 34.9 % (30-36); Mean Corpuscular Hemoglobin 29.7 PG (26-34); Monocytes Absolute Auto 400 /uL (0-900); Monocytes Percent Auto 6.6 % (3-14); Neutrophils Absolute Auto 3700 /uL (1500-7000); Neutrophils Percent Auto 66.4 % (50-75); Platelet Count 234 X10^3/uL (150-400); Red Blood Cell Count 3.65 X10^6/uL (4.0-5.2); Red Cell Distribution Width 12.6 % (11.6-14.8); White Blood Cell Count 5.6 X10^3/uL (4.5-11.0)
[2021-12-12 09:08] LABS: Alanine Aminotransferase 67 IU/L (<35); Albumin 3.6 g/dL (3.5-5.0); Albumin Globulin Ratio 1.2 (1.0-2.8); Alkaline Phosphatase 93 U/L (38-126); Aspartate Aminotransferase 67 IU/L (14-36); BUN Creatinine Ratio 13.9 (6-22); Bilirubin Total 0.6 mg/dL (0.2-1.3); Blood Urea Nitrogen 10 mg/dL (7-17); Calcium 8.9 mg/dL (8.4-10.2); Carbon Dioxide 30 mmol/L (22-32); Chloride 101 mmol/L (98-107); Estimated Glomerular Filt Rate > 60 mL/min (>60); Globulin 3.1 g/dL (1.7-4.1); Glucose 118 mg/dL (80-110); HEMOLYSIS < 15 (0-50); Potassium 3.7 mmol/L (3.4-5.1); Sodium 140 mmol/L (137-145); Total Protein 6.7 g/dL (6.3-8.2)
[2021-12-12] MEDS: HYDROMORPHONE 1 MG INJ IV (09:15)
[2021-12-12] MEDS: ONDANSETRON 4 MG/2 ML INJ IV (09:15)
== END 2021-12-12 10:53 | disposition home or self-care (01) ==
PROVIDERS: Emergency Provider Emergency Medicine; PCP Internal Medicine
DX: M62.830 Muscle spasm of back (principal); G89.18 Other acute postprocedural pain
CPT/HCPCS: 36415; 72131; 80053; 85025; 96374; 96375; 99284; J1170; J2405

== ENCOUNTER 2022-01-07 12:40 | Emergency (ER) | payer MEDICARE, SELFPAY ==
[2021-12-04 18:10] VITALS: BMI 27.8
[2022-01-07 12:47] VITALS: BP 131/62; PULSE 70; RESP 14; TEMP 36.4; O2SAT 97; BMI 30.9
== END 2022-01-07 15:09 | disposition left against medical advice (07) ==
PROVIDERS: Emergency Provider Family Medicine Addiction Medicine; PCP Internal Medicine
DX: G89.18 Other acute postprocedural pain (principal)
CPT/HCPCS: 99281

== ENCOUNTER → 2022-06-01 10:18 | Outpatient (CLI) | payer MEDICARE, SELFPAY ==
[2021-12-04 18:10] VITALS: BMI 27.8
--- NOTE | 2022-06-01 10:43 | DI.CT.S_ITS ---
PROCEDURE: CT LUMBAR SPINE WO CON INDICATIONS: Spinal stenosis, lumbar region TECHNIQUE: Noncontrast 3 mm thick sections acquired from the T12 level to the sacrum. Sagittal and coronal reformats were constructed. For radiation dose reduction, the following was used: automated exposure control. COMPARISON: [facility], CT, CT LUMBAR SPINE WO CON, 12/12/2021, 8:51. FINDINGS: Image quality: Excellent. Bones: There is normal bony alignment. Schmorl's nodes are present at multiple levels. There are anterior osteophytes throughout the thoracolumbar spine. Postoperative changes of pedicular jake and screw fixation spanning from L4 through S1 with interval discectomy. No acute vertebral body compression fractures. No suspicious lytic or blastic bony lesions. No pars defects. Multilevel degenerative changes and multilevel disc disease T12-L1: No significant disc bulge. The foramina and central canal are patent. L1-L2: Degenerative changes of the disc with intradiscal gas and a diffuse disc bulge causes mild bilateral foraminal stenosis. The central canal is patent. L2-L3: Degenerative disc disease with intradiscal gas and bilateral facet hypertrophy cause moderate bilateral foraminal stenosis. Mild central canal stenosis. L3-L4: Degenerative disc disease with intradiscal gas and bilateral facet hypertrophy cause mild bilateral foraminal stenosis. There is minimal 2 mm anterolisthesis. Moderate central canal stenosis. L4-L5: Discectomy and fusion at this level. The left foramen has severe stenosis due to facet hypertrophy. The right foramen is patent. Ligamentum flavum hypertrophy. Severe central canal stenosis. Right foraminotomy. L5-S1: Discectomy and fusion at this level. The bilateral foramina have moderate right and severe left foraminal stenosis. Ligamentum flavum hypertrophy. Severe central canal stenosis. Right foraminotomy. Soft tissues: No retroperitoneal masses or hematomas. Visualized aorta is normal in caliber. IMPRESSION: 1. Postoperative changes as above. 2. Multilevel severe central canal stenosis at L4-5 and L5-S1 and moderate canal stenosis at L3-4. 3. Multilevel foraminal stenosis as detailed above. Dictated by: Nate Valdez M.D. on 06/01/2022 at 13:32 Approved by: Nate Valdez M.D. on 06/01/2022 at 13:41
== END ==
PROVIDERS: PCP Internal Medicine; Referring Provider Orthopaedic Surgery Orthopaedic Surgery of the Spine; Visit Provider Orthopaedic Surgery Orthopaedic Surgery of the Spine
DX: M48.062 Spinal stenosis, lumbar region with neurogenic claudication (principal); Z98.1 Arthrodesis status
CPT/HCPCS: 72131